=== PATIENT | female | born 1985 | race Caucasian/White ===

== ENCOUNTER → 2021-07-15 | Outpatient (CLI) | payer MEDICAID ==
--- NOTE | 2021-07-15 08:43 | RAD ---
OB ultrasound greater than 14 weeks HISTORY: Supervision of . Sonographic evaluation of the performed and multiple static images were obtained. There is a single live intrauterine . The heartbeat is confirmed at 136 bpm. The cervix zhang ures 4.3 cm in length but is not well seen due to the cephalic position. Visualization of struc tures is limited due to the advanced gestational age. There is a posterior placenta. The amount of fl uid volume appears normal amniotic fluid index measures 11.2 cm. The stomach kidneys spine and bladde r appear normal. The LMP of December 2020 corresponds to 24 week 1 day gestational age this may drink 5 mm of November 03, 2001. Estimated size by ultrasound 23 weeks 6 days estimated date of confinement November 05, 2021. Estimated weight is 1 lb. 5 oz. +/- 3 ounces. Estimated weight percentile is 34 percent. The measurements are as follows: BPD 6 cm 24 weeks 4 days. Head circumference 22 cm 24 weeks 0 days Abdominal circumference 18 cm 23 weeks 1 day Femur length 4.2 cm 23 weeks 4 days IMPRESSION: 1. Single live intrauterine at 24 weeks 1 day gestational age by LMP has appropriate size b y ultrasound. 2. No abnormality identified. Electronically signed by: Basilio Herr III, MD (07/15/2021 8:41 AM) [id number]
== END ==
LOC: US 07:10
PROVIDERS: ATTEND Obstetrics & Gynecology
DX: O09.72 Supervision of high risk pregnancy due to social problems, second trimester (principal); Z3A.24 24 weeks gestation of pregnancy
CPT/HCPCS: 76805

== ENCOUNTER → 2021-07-29 | Outpatient (CLI) | payer MEDICAID ==
[2021-07-29 13:03] LABS: BASO % 0 % (0-3); EOS # 0.1 x10^3/uL (0.0-0.7); EOS % 1 % (0-3); HEMOGLOBIN 10.7 g/dL (12.0-15.5); LYMPH # 0.8 x10^3/uL (1.0-4.8); LYMPH % 13 % (24-48); MEAN CORPUSCULAR HEMOGLOBIN 30 pg (25-35); MEAN CORPUSCULAR HGB CONC 33 g/dL (31-37); MEAN CORPUSCULAR VOLUME 89 fL (79-100); MONO # 0.3 x10^3/uL (0.0-1.1); MONO % 5 % (0-9); NEUT # 5.4 x10^3/uL (1.8-7.7); NEUT % 81 % (31-73); PLATELET COUNT 115 x10^3/uL (140-400); RED BLOOD COUNT 3.59 x10^6/uL (3.50-5.40); RED CELL DISTRIBUTION WIDTH 13.7 % (11.5-14.5); WHITE BLOOD COUNT 6.6 x10^3/uL (4.0-11.0)
[2021-07-30 17:10] LABS: RUBELLA IGG ANTIBODY 1.56 index (Immune >0.99)
== END ==
LOC: LAB 11:35
PROVIDERS: ATTEND Obstetrics & Gynecology
DX: O09.72 Supervision of high risk pregnancy due to social problems, second trimester (principal)
CPT/HCPCS: 36415; 82950; 85025; 85660; 86592; 86703; 86762; 86787; 86803; 86850; 86900; 86901; 87340

== ENCOUNTER → 2021-10-18 | Outpatient (CLI) | payer MEDICAID ==
[2021-10-18 11:06] LABS: BASO % 1 % (0-3); EOS % 1 % (0-3); HEMATOCRIT 30.9 % (36.0-47.0); HEMOGLOBIN 10.2 g/dL (12.0-15.5); LYMPH # 0.9 x10^3/uL (1.0-4.8); LYMPH % 14 % (24-48); MEAN CORPUSCULAR HEMOGLOBIN 28 pg (25-35); MEAN CORPUSCULAR HGB CONC 33 g/dL (31-37); MEAN CORPUSCULAR VOLUME 84 fL (79-100); MONO # 0.5 x10^3/uL (0.0-1.1); MONO % 8 % (0-9); NEUT # 4.9 x10^3/uL (1.8-7.7); NEUT % 77 % (31-73); PLATELET COUNT 112 x10^3/uL (140-400); RED BLOOD COUNT 3.67 x10^6/uL (3.50-5.40); RED CELL DISTRIBUTION WIDTH 13.6 % (11.5-14.5); WHITE BLOOD COUNT 6.4 x10^3/uL (4.0-11.0)
== END ==
LOC: LAB 10:36
PROVIDERS: ATTEND Obstetrics & Gynecology
DX: Z34.93 Encounter for supervision of normal pregnancy, unspecified, third trimester (principal)
CPT/HCPCS: 36415; 85025

== ENCOUNTER → 2021-10-26 | Outpatient (CLI) | payer MEDICAID ==
[~2021-10-26] MED LIST: DOCU-109 PO; FERR325T14 PO; OXYC1TAB15 PO
== END ==
LOC: LAB 10:16
PROVIDERS: ATTEND Obstetrics & Gynecology
DX: Z01.812 Encounter for preprocedural laboratory examination (principal); Z20.822 Contact with and (suspected) exposure to COVID-19
CPT/HCPCS: U0003

== ENCOUNTER 2021-10-27 05:59 | Inpatient (IN) | payer MEDICAID ==
[~2021-10-27] VITALS: Ht 157.5 cm; Wt 88.0 kg
[2021-10-27] MEDS ORDERED: IV RINGERS,LACTATED 1000ML 1,000 ML IV SCH (06:30)
[2021-10-27] MEDS ORDERED: IV NORMAL SALINE 1000ML BAG 1,000 ML IV SCH (06:30)
[2021-10-27] MEDS ORDERED: CITRIC ACID/SODIUM CITRATE 30 ML SOLUTION. PO ONE (07:00)
[2021-10-27] MEDS ORDERED: OXYTOCIN 10 UNIT/ML VIAL. ONE (07:45)
[2021-10-27] MEDS ORDERED: ePHEDrine PF IN SALINE 50 MG/10 ML SYRINGE. IV ONE (07:46)
[2021-10-27] MEDS ORDERED: fentaNYL PF VIAL 100 MCG/2 ML VIAL ONE (07:46)
[2021-10-27] MEDS ORDERED: PHENYLEPHRINE in 0.9% NACL PF 1 MG/10 ML SYRINGE. IV ONE (07:46)
[2021-10-27] MEDS ORDERED: MORPHINE PF 10 MG/10 ML AMPUL. ONE (07:47)
--- NOTE | 2021-10-27 07:52 | PDOC1 ---
[facility] [employer] H&P Date of Admission: Date of Admission: Oct 27, 2021 at 05:59 History of Present Illness: EDC: 11/03/21 LMP: 01/27/21 36y @ 39.0 by L=22 presents for scheduled C/S. The pt has had a relatively uncomplicated . The pt was noted to have Plt of 115 initially, a repeat at 36wks was 112. PMH: Denies. PSH: C/S x 3 Meds: MVI All: PCN OBHx: TC/S x 3, SAB x 1 SH: 07/06 PPD, no EtOH FH: noncontributory Medications: Meds: Current Medications Medications (Trade) Dose Ordered Sig/Sahil Route PRN Reason Start Time Stop Time Status Last Admin Dose Admin Ringer's Solution 1,000 ml @ 125 mls/hr Q8H IV 10/27/21 06:30 10/27/21 07:43 Cefazolin Sodium/ Dextrose 50 ml @ 100 mls/hr 1X ONCE IV 10/27/21 07:00 10/27/21 07:29 DC 10/27/21 07:44 Citric Acid/ Sodium Citrate (Bicitra) 30 ml 1X ONCE PO 10/27/21 07:00 10/27/21 07:01 DC 10/27/21 07:44 Allergies: Coded Allergies: Penicillins (Verified Allergy, Severe, 10/27/21) Physical Exam: PE: GENERAL: No apparent distress. Alert and oriented. HEENT: Head normocephalic, atraumatic. NECK: Supple LUNGS: Clear to auscultation. HEART: RRR, S1, S2 present, pulses intact ABDOMEN: Soft, positive bowel sounds. EXTREMITIES: No cyanosis or edema. NEUROLOGIC: Normal speech, normal tone PSYCHIATRIC: Normal affect, normal mood. SKIN: No ulceration. FHT: 120's +acels/no decels/mLTV [place]: quiet Assessment & Plan: A/P 36y @ 39.0 by L=22 1.) Prev C/S x 3 2.) AMA - decline NIPT 3.) H/o thrombocytopenia - Plt 112 4.) PCN All - has tom Keflex 5.) TDAP given 09/08/21 6.) No longer DPS - TISH consent signed 09/08/21 7.) Fetus cat I FHT 8.) GBS obtained JAMES HOUSE MD Oct 27, 2021 07:52
[2021-10-27 07:59] LABS: BACTERIA,URINE 0 /HPF (0-FEW); RBC,URINE 0 /HPF (0-2); WBC,URINE 0 /HPF (0-4)
[2021-10-27 08:08] LABS: HEMATOCRIT 30.9 % (36.0-47.0); HEMOGLOBIN 10.3 g/dL (12.0-15.5); RED BLOOD COUNT 3.69 x10^6/uL (3.50-5.40); RED CELL DISTRIBUTION WIDTH 13.7 % (11.5-14.5); WHITE BLOOD COUNT 6.6 x10^3/uL (4.0-11.0)
[2021-10-27] MEDS ORDERED: ONDANSETRON PF 4 MG/2 ML VIAL. ONE (08:38)
[2021-10-27] MEDS ORDERED: FAMOTIDINE 20 MG/2 ML VIAL ONE (08:38)
[2021-10-27] MEDS ORDERED: diphenhydrAMINE ORAL ELIXIR 12.5 MG/5 ML ML PO PRN (10:15)
[2021-10-27] MEDS ORDERED: 0.9 % SODIUM CHLORIDE 10 ML DISP.SYRIN. IV PRN (10:15)
[2021-10-27] MEDS ORDERED: TDaP (BOOSTRIX) per PROTOCOL. MC PRN (10:15)
[2021-10-27] MEDS ORDERED: BENZOCAINE 20% TOPICAL AEROSOL SPRAY 57GM CAN. TP PRN (10:15)
[2021-10-27] MEDS ORDERED: ACETAMINOPHEN 325 MG TABLET. PO PRN (10:15)
[2021-10-27] MEDS ORDERED: IBUPROFEN 400 MG TABLET. PO PRN (10:15)
[2021-10-27] MEDS ORDERED: MMR per PROTOCOL. MC PRN (10:15)
[2021-10-27] MEDS ORDERED: OXYTOCIN 30 UNIT/500 ML PREMIX 500 ML IV PRN (10:15)
--- NOTE | 2021-10-27 10:24 | PDOC4 ---
OPERATIVE NOTE: PreOpDx: 1.) IUP @ 39.0 by L=22, 2.) Prev C/S x 3, 3.) AMA - decline NIPT, 4.) H/o thrombocytopenia - Plt 114, 5.) PCN All - has tom Keflex, 6.) TDAP given 09/08/21, 7.) GBS obtained PostOp Dx: same Procedure: RLTCS Surgeon: Cindy House Anesthesia: Spinal EBL: 700 cc Fluids 900 cc UOP: 100 cc Complications: None Findings: viable female delivered at 0905. Wt 6 lb 12 oz. APGARS 8/9. Nml tubes and ovaries Path: Cord blood JAMES HOUSE MD Oct 27, 2021 10:24
--- NOTE | 2021-10-27 10:52 | OP ---
DATE OF SURGERY: 10/27/2021 PREOPERATIVE DIAGNOSES: 1. Intrauterine at 39 weeks and 0 days by LMP equal to 22-week ultrasound. 2. Previous section x 3. 3. Advanced maternal age, declines NIPT. 4. History of thrombocytopenia with platelets of 114. 5. PENICILLIN ALLERGY, but has tolerated cephalosporins. 6. Status post Tdap. 7. GBS obtained. POSTOPERATIVE DIAGNOSES: 1. Intrauterine at 39 weeks and 0 days by LMP equal to 22-week ultrasound. 2. Previous section x 3. 3. Advanced maternal age, declines NIPT. 4. History of thrombocytopenia with platelets of 114. 5. PENICILLIN ALLERGY, but has tolerated cephalosporins. 6. Status post Tdap. 7. GBS obtained. PROCEDURE: Repeat low transverse . SURGEON: Thom Crespo MD ANESTHESIA: Spinal. ESTIMATED BLOOD LOSS: 700 mL. FLUIDS: 900 mL. URINE OUTPUT: 100 mL. COMPLICATIONS: None. FINDINGS: Viable female delivered at 0905, weighing 6 pounds 12 ounces with Apgars of 8 and 9. Normal maternal tubes and ovaries noted. PATHOLOGY: Cord blood. DESCRIPTION OF PROCEDURE: The patient was taken to the operating room where spinal anesthesia was obtained without difficulty. The patient was prepped and draped in normal sterile fashion. Her previous Pfannenstiel skin incision was cut down with scalpel with under previous skin incision was used to cut down to the underlying layer of fascia with the scalpel. The fascia was then nicked in the midline. The fascial incision was then extended laterally with Tyler scissors. Superior aspect of the fascial incision was then grasped with Salima clamps, elevated and the underlying rectus muscle was dissected off with the scalpel. An opening into the peritoneal cavity was created with the separation of the fascia from the muscle. Attention was then turned to the inferior aspect of fascial incision, which was grabbed with Salima clamps, elevated, and underlying rectus muscle was dissected off with Tyler scissors. The peritoneal defect that was created was then explored digitally, it revealed some adhesions posterior into the right between the serosa, bladder and kind of the anterior abdominal wall. The peritoneal incision was then taken down with the Bovie to better visualize this adhesion. Once it was better visualized, a bladder blade was then placed and a bladder flap was then created with Metzenbaum scissors. Once the bladder flap was created, the bladder blade was removed and the Db ring was then placed into the abdomen. At that point, the bladder flap was worked on little bit more to bring it down away from the hysterotomy. Once this was accomplished, the lower uterine segment was then incised in transverse fashion with a scalpel. The hysterotomy was extended with traction and countertraction. At that point, the 's head was then flexed and brought to the hysterotomy. It could not be delivered immediately. The vacuum was then placed and traction was placed while fundal pressure was applied. The vacuum popped off a couple of times. It was felt that the hysterotomy was too small. At that point, an extension was created on the right with bandage scissors. Once this was performed, the vacuum was reapplied. The infant's head was still unable to be delivered. At that point, a partial Maylard was then created through the Db on the right. Once this had been performed, the 's head was then flexed and brought through the hysterotomy without the use of the vacuum without difficulty. The rest of infant was then delivered atraumatically. The cord was double clamped and cut and infant was handed over to the waiting anesthesiologist. At that point, the placenta was removed manually and the uterus was cleared of all clots and debris. Uterine incision was then repaired with #1 chromic in a running locked fashion. Second layer of the same suture was used to imbricate. Good hemostasis was noted. At that point, the adnexa was examined on both sides, which revealed normal tubes and ovaries and no additional adhesions. At that point, the gutters were copiously irrigated and cleared of all clots and debris. The Db ring was then removed. Examination of the peritoneum revealed omental adhesion superiorly. This was then taken down with the Bovie. Once the omentum was freed of the anterior abdominal wall, the peritoneum was then reapproximated with 2-0 Vicryl in a running fashion. The muscle was reapproximated with 2-0 Vicryl in a running fashion. The fascia was then closed with 0 Vicryl in a running fashion. The skin was then closed with 3-0 Monocryl in a subcuticular manner. Sponges, laps and needles were correct x 3. Two grams of Ancef were given prior to procedure. The patient was taken to the recovery room in stable condition. MM/HUNTER DR: Spenser TID: [id number]
[2021-10-27] MEDS: KETOROLAC 30 MG/ML VIAL. IVP PRN ×2 (12:04→22:43)
[2021-10-27 12:48] VITALS: BP 97/61
[2021-10-27 13:35] VITALS: BP 106/57
[2021-10-27 16:44] VITALS: BP 101/58
[2021-10-27] MEDS: FERROUS SULFATE 325 MG TABLET. PO SCH (17:00)
[2021-10-27] MEDS ORDERED: IV RINGERS,LACTATED 1000ML 1,000 ML IV ONE (18:30)
[2021-10-27 20:37] VITALS: BP 114/72
[2021-10-28 02:08] VITALS: BP 109/62
[2021-10-28 06:17] VITALS: BP 111/61
[2021-10-28 07:42] LABS: HEMATOCRIT 26.6 % (36.0-47.0); HEMOGLOBIN 8.9 g/dL (12.0-15.5); RED BLOOD COUNT 3.15 x10^6/uL (3.50-5.40); RED CELL DISTRIBUTION WIDTH 13.6 % (11.5-14.5); WHITE BLOOD COUNT 6.7 x10^3/uL (4.0-11.0)
[2021-10-28] MEDS: FERROUS SULFATE 325 MG TABLET. PO SCH ×2 (08:26→17:59)
[2021-10-28] MEDS: KETOROLAC 30 MG/ML VIAL. IVP PRN (08:31)
[2021-10-28] MEDS: MULTIVITAMIN with MINERAL TABLET. PO SCH (08:35)
[2021-10-28] MEDS: DOCUSATE SODIUM 100 MG CAPSULE. PO PRN (08:35)
[2021-10-28] MEDS: PRENATAL MULTIVITAMIN TABLET. PO SCH (09:00)
--- NOTE | 2021-10-28 09:08 | NUR ---
0900 medication pass, Thera M Plus given. vitamin not given. Both meds are ordered.
[2021-10-28 10:00] VITALS: BP 103/67
[2021-10-28] MEDS: oxyCODONE/APAP 5/325 1 TAB TABLET PO PRN ×4 (12:57→21:03)
--- NOTE | 2021-10-28 13:04 | PDOC ---
[employer] PROGRESS NOTE Date of Service: DATE: 10/28/21 TIME: 12:58 Subjective: 36 y/o female is POD #1 status post section. Patient is doing well. Pain is well controlled by oral pain medications. Lochia minimal. Patient is tolerating diet with no significant nausea/vomiting today. She denies shortness of breath,chest pain, headache, or visual disturbances. Objective: Vital Signs: Vital Signs Date Time Temp Pulse Resp B/P (MAP) Pulse Ox O2 Delivery O2 Flow Rate FiO2 10/27/21 10:30 Room Air 10/27/21 12:48 98.0 74 18 97/61 (73) 98.0 10/27/21 13:35 96 Vital Signs Date Time Temp Pulse Resp B/P (MAP) Pulse Ox O2 Delivery O2 Flow Rate FiO2 10/28/21 12:57 18 Room Air 10/28/21 10:00 98.2 87 103/67 (79) 98.2 10/27/21 16:44 98 Labs: Laboratory Tests Test 10/28/21 07:05 White Blood Count 6.7 x10^3/uL (4.0-11.0) Red Blood Count 3.15 x10^6/uL (3.50-5.40) L Hemoglobin 8.9 g/dL (12.0-15.5) L Hematocrit 26.6 % (36.0-47.0) L Mean Corpuscular Volume 84 fL (79-100) Mean Corpuscular Hemoglobin 28 pg (25-35) Mean Corpuscular Hemoglobin Concent 33 g/dL (31-37) Red Cell Distribution Width 13.6 % (11.5-14.5) Platelet Count 92 x10^3/uL (140-400) L Laboratory Tests 10/28/21 07:05 Laboratory Tests 10/28/21 07:05 Physical Exam: GENERAL: No apparent distress. Alert and oriented. HEENT: Head normocephalic, atraumatic. NECK: Supple LUNGS: Clear to auscultation. HEART: RRR, S1, S2 present, pulses intact ABDOMEN: Soft, positive bowel sounds. EXTREMITIES: No cyanosis or edema. NEUROLOGIC: Normal speech, normal tone PSYCHIATRIC: Normal affect, normal mood. SKIN: No ulceration. Inicision: clean/dry/intact Assessment & Plan: 36 y/o 1. POD #1 status post section. 2. Anemia: Mild anemia with chronic anemia in . 3. ITP: No significant change from baseline. Repeat CBC in a.m. 4. Continue normal post-operative care. 5. Discharge home tomorrow per patient request. JHONATHAN MALDONADO MD Oct 28, 2021 13:04
[2021-10-28 14:00] VITALS: BP 107/69
[2021-10-28 18:00] VITALS: BP 105/67
[2021-10-28 20:00] VITALS: BP 112/76
[2021-10-29 06:00] VITALS: BP 106/72
[2021-10-29] MEDS: oxyCODONE/APAP 5/325 1 TAB TABLET PO PRN ×2 (06:05→10:23)
--- NOTE | 2021-10-29 06:47 | NUR ---
Per the [facility] Elopement Policy, the patient is not deemed an elopement risk.
[2021-10-29] MEDS: FERROUS SULFATE 325 MG TABLET. PO SCH (08:00)
[2021-10-29 08:19] LABS: HEMATOCRIT 25.9 % (36.0-47.0); HEMOGLOBIN 8.7 g/dL (12.0-15.5); RED BLOOD COUNT 3.07 x10^6/uL (3.50-5.40); RED CELL DISTRIBUTION WIDTH 14.1 % (11.5-14.5); WHITE BLOOD COUNT 6.5 x10^3/uL (4.0-11.0)
--- NOTE | 2021-10-29 08:35 | NUR ---
CBC results in, Dr Damico viewed results.
--- NOTE | 2021-10-29 08:54 | PDOC ---
[employer] PROGRESS NOTE Date of Service: DATE: 10/29/21 TIME: 08:45 Subjective: 36 y/o is POD #2 status post section with uncomplicated course. Patient is requesting two Percocet for pain management and tolerating oral pain medications. Lochia minimal. Patient denies headache, shortness of breath, chest pain, or fever. Objective: Vital Signs: Vital Signs Date Time Temp Pulse Resp B/P (MAP) Pulse Ox O2 Delivery O2 Flow Rate FiO2 10/28/21 09:00 Room Air 10/28/21 10:00 98.2 87 18 103/67 (79) 98.2 10/28/21 18:59 98 Vital Signs Date Time Temp Pulse Resp B/P (MAP) Pulse Ox O2 Delivery O2 Flow Rate FiO2 10/29/21 06:35 98 Room Air 10/29/21 06:00 98.7 79 18 106/72 (83) 98.7 Labs: Laboratory Tests Test 10/29/21 07:55 White Blood Count 6.5 x10^3/uL (4.0-11.0) Red Blood Count 3.07 x10^6/uL (3.50-5.40) L Hemoglobin 8.7 g/dL (12.0-15.5) L Hematocrit 25.9 % (36.0-47.0) L Mean Corpuscular Volume 84 fL (79-100) Mean Corpuscular Hemoglobin 28 pg (25-35) Mean Corpuscular Hemoglobin Concent 34 g/dL (31-37) Red Cell Distribution Width 14.1 % (11.5-14.5) Platelet Count 112 x10^3/uL (140-400) L Laboratory Tests 10/29/21 07:55 Laboratory Tests 10/29/21 07:55 Physical Exam: GENERAL: No apparent distress. Alert and oriented. HEENT: Head normocephalic, atraumatic. NECK: Supple LUNGS: Clear to auscultation. HEART: RRR, S1, S2 present, pulses intact ABDOMEN: Soft, positive bowel sounds. EXTREMITIES: No cyanosis or edema. NEUROLOGIC: Normal speech, normal tone PSYCHIATRIC: Normal affect, normal mood. SKIN: No ulceration. Assessment & Plan: 36 y/o 1. POD #2 status post section. 2. Anemia: Mild anemia with chronic anemia in . 3. ITP: No significant change from baseline. Discussed discontinuation and avoidance of ibuprofen. 4. Continue normal post-operative care. 5. Discharge home today per patient request. Discussed pain management and patient desires a few extra Percocet for the next few days. JHONATHAN MALDONADO MD Oct 29, 2021 08:54
[2021-10-29] MEDS: PRENATAL MULTIVITAMIN TABLET. PO SCH (09:00)
--- NOTE | 2021-10-29 09:00 | DISCH ---
DISCHARGE INSTRUCTIONS Condition on Discharge Condition on Discharge: Stable Activity After Discharge Activity Instructions for Disc: Activity as tolerated Lifting Instructions after Dis: No heavy lifting, Do not lift >10 pounds Driving Instructions after Dis: No driving for 2 weeks Diet after Discharge Diet after Discharge: Regular Wound Incision Care Wound/Incision Care: May get incision wet Contacting the DRKaroline after DC Call your doctor for: severe vaginal bleeding Follow-Up Follow up with: Dr. Thom Crespo in one week for incision check JHONATHAN MALDONADO MD Oct 29, 2021 09:00
[2021-10-29] MEDS: MULTIVITAMIN with MINERAL TABLET. PO SCH (09:02)
[2021-10-29] MEDS: DOCUSATE SODIUM 100 MG CAPSULE. PO PRN (09:02)
[2021-10-29] MEDS ORDERED: DOCU-109 PO (09:09)
[2021-10-29] MEDS ORDERED: FERR325T14 PO (09:09)
[2021-10-29] MEDS ORDERED: OXYC1TAB15 PO (09:09)
[2021-10-29 10:00] VITALS: BP 110/73
--- NOTE | 2021-10-29 19:26 | NUR ---
1045 Patient DC at this time to home. Patient amb to vehicle accompanied by SO, Family and RN. Belonging taken by patient at time of discharge. Baby in car seat and secured in car.
== END 2021-10-29 10:45 | disposition home or self-care (01) | DRG 788 ==
LOC: 3 SO LND 05:59
PROVIDERS: ADMIT Obstetrics & Gynecology; ATTEND Obstetrics & Gynecology
PROC: 10D00Z1 Extraction of Products of Conception, Low, Open Approach (ICD-10-PCS; principal; 2021-10-27)
DX: O34.211 Maternal care for low transverse scar from previous cesarean delivery (principal); Z3A.39 39 weeks gestation of pregnancy; Z37.0 Single live birth; O99.02 Anemia complicating childbirth; O99.62 Diseases of the digestive system complicating childbirth; K66.0 Peritoneal adhesions (postprocedural) (postinfection)
CPT/HCPCS: 36415; 81001; 85027; 86592; 86850; 86900; 86901; 87653; C1755; J0690; J1885; J2274; J2370; J2405; J2590; J3010; J3490; J7120; G0378